=== PATIENT | female | born 1965 | race Caucasian/White ===

== ENCOUNTER 2017-09-02 15:12 | Inpatient (IN) ==
--- NOTE | 2017-09-02 15:27 | Emergency Department Note ---
Disposition Clinical Impression: Urinary tract infection, Ovarian cyst, Diabetes, Abdominal pain, Obesity, History of diverticulitis Disposition: Home, Self-Care Condition: Good Instructions: Diabetes Mellitus Type 2 in Adults (ED), Abdominal Pain (ED), Urinary Tract Infection in Women (ED), Ovarian Cyst (ED) Reasons to Return/Additional Instructions: Return to the emergency department if there is increased abdominal pain, vaginal bleeding or discharge, fever, passing out, flank pain, chest pain, shortness of breath, lower high blood sugar, confusion, any trouble walking talking hearing seeing or speaking, worsening or any other concern. Follow up with your primary care physician or the [facility] [place] [facility] in 2 days. Prescriptions: cephALEXin [Keflex] 500 mg PO TID #15 capsule Referrals: Juan Frausto DO [Primary Care Provider] - [facility] [Outside] Forms: ED Satisfaction Letter General Adult HPI - General Chief complaint: ED Urogenital-Female Stated complaint: uti Time Seen by Provider: 09/02/17 15:18 - History of Present Illness HPI Narrative: 52-year-old female reports emergency department via EMS. The patient reports she has had frequency of urination for the last one week or so. She reports she has been treated for UTI. She went back for recheck at an outpatient center , they were concerned because the patient reported abdominal pain and evidently had not improved with the antibiotics. She is known to be diabetic. She states her sugars have been well-controlled. There is no history of flank pain , the patient reportedly stated she had left-sided abdominal pain and was concerned about diverticulitis. She had a history of diverticulitis in the past. There is been no vomiting or diarrhea. The patient is not anticoagulated. There is no history of chest pain or acute shortness of breath , she has chronic COPD but does not require oxygen. No fevers. No history of convulsions or confusion or any difficulty moving the arms or legs independently. The patient describes dysuria. No history of vaginal discharge or bleeding given. There is no history of bloody urine or fever or flank pain. Per report the outpatient providers were concerned regarding the patient's nonimprovement had the patient sent to the ED. - Related Data Previous Rx's Medication Instructions Recorded Ciprofloxacin HCl [Cipro] 500 mg PO BID #20 tablet 10/25/16 Hydrocodone/Acetaminophen [Gordon 1 - 2 each PO Q6H PRN #8 tablet 10/25/16 5-325 Tablet] Ondansetron ODT [Zofran ODT] 4 mg SL Q6HR PRN #15 tab.rapdis 10/25/16 metroNIDAZOLE [Flagyl] 500 mg PO TID #30 tablet 10/25/16 Hydrocodone/Acetaminophen [Gordon 1 tab PO Q6H PRN #15 tab 10/28/16 5-325 Tablet] cephALEXin [Keflex] 500 mg PO TID #15 capsule 09/02/17 Allergies Allergy/AdvReac Type Severity Reaction Status Date / Time No Known Allergies Allergy Verified 10/28/16 17:58 All systems ED: reviewed and negative except as stated. Past Medical History - Past Medical History Medical history: Reports: COPD, diabetes, GERD, hypertension Surgical history: Reports: orthopedic, other Psychiatric history: Reports: bipolar - Social History Smoking Status: Current every day smoker Alcohol use: Reports: none Drug use: Reports: none Physical Exam - General Limitations: no limitations General appearance: alert, in no apparent distress - Head Head exam: atraumatic, normocephalic, normal inspection - Eye Eye exam: Present: normal appearance, PERRL, EOMI - ENT ENT exam: normal exam, normal oropharynx, mucous membranes moist, TM's normal bilaterally, normal external ear exam - Neck Neck exam: Present: normal inspection, full ROM, trachea midline - Chest Chest inspection: Present: symmetric chest wall rise. Absent: tenderness - Respiratory Respiratory exam: Present: normal lung sounds bilaterally. Absent: respiratory distress, wheezes, accessory muscle use, prolonged expiratory phase - Cardiovascular Cardiovascular exam: Present: regular rate, normal rhythm, normal heart sounds - Abdominal Exam Abdominal exam: Present: soft, Non-Tender, normal bowel sounds. Absent: tenderness, distention, guarding, rebound, rigidity - Extremities Exam Extremities exam: Present: normal inspection, full ROM, normal capillary refill. Absent: tenderness, pedal edema, joint swelling, calf tenderness - Expanded Lower Extremity Exam Neurovascular/Tendon exam: Present: normal capillary refill. Absent: motor deficit, sensory deficit, tendon deficit, extremity cold to touch, pallor - Back Exam Back exam: Present: normal inspection, full ROM. Absent: tenderness, CVA tenderness (R), CVA tenderness (L), vertebral tenderness - Neurological Exam Neurological exam: Present: alert, oriented X3, CN II-XII intact. Absent: motor sensory deficit - Psychiatric Psychiatric exam: Present: normal affect, normal mood - Skin Skin exam: Present: warm, dry, intact, normal color. Absent: rash, cyanosis, diaphoresis, erythema, pallor, mottled Course Vital Signs Temperature 98.4 F 09/02/17 15:28 Pulse Rate 85 09/02/17 15:28 Respiratory Rate 16 09/02/17 15:28 Blood Pressure 125/80 09/02/17 15:28 O2 Sat by Pulse Oximetry 93 09/02/17 15:28 Temperature 98.4 F 09/02/17 15:28 Pulse Rate 85 09/02/17 15:28 Respiratory Rate 16 09/02/17 15:28 Blood Pressure 125/80 09/02/17 15:28 O2 Sat by Pulse Oximetry 93 09/02/17 15:28 Oxygen Delivery Oxygen Delivery Room Air Medical Decision Making - MDM Narrative Medical decision making narrative: The patient appears to be stable, she describes dysuria, the reports of left lower abdominal pain, CT scan reveals bilateral ovarian cyst with no evidence of diverticulitis or pyelonephritis. She is diabetic, her blood sugar was slightly low in the ED at 66, D50 and fluids were given. The patient's urinalysis shows changes suggestive of infection. She reports she was just treated it is now not taking any more antibiotics. Keflex was given in the ED and prescribed. He patient may benefit from an outpatient pelvic ultrasound, she has bilateral ovarian changes as well as an abnormal shaped uterus per the CT scan report. She appears to be stable. She is alert oriented and ambulatory. She felt comfortable being discharged. 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 - Lab Data Lab results reviewed: Yes I reviewed the patient's lab results. Result diagrams: 09/02/17 15:46 09/02/17 15:46 Lab Results 09/02/17 09/02/17 09/02/17 Range/Units 15:46 15:46 15:50 WBC 15.3 H (4.3-11.1) K/mcL RBC 5.56 H (3.82-4.97) M/mcL Hgb 15.1 (11.5-15.4) g/dL Hct 46.7 H (35.3-44.9) % MCV 84.0 (83.0-100.0) fL MCH 27.2 L (28.0-33.3) pg MCHC 32.3 (31.6-35.5) g/dL RDW 18.3 H (11.5-14.5) % Plt Count 372 (140-400) K/mcL MPV 9.4 (9.4-12.4) fL Immature Gran % 0.5 (0-4) % Seg Neutrophils % 66.0 % Lymphocytes % 24.3 % Monocytes % 8.1 % Eosinophils % 0.5 % Basophils % 0.6 % Neutrophils # 10.1 H (1.6-8.9) K/mcL Lymphocytes # 3.7 (0.6-4.6) K/mcL Monocytes # 1.2 (0.0-1.3) K/mcL Eosinophils # 0.1 (0.0-0.6) K/mcL Basophils # 0.1 (0.0-0.2) K/mcL Immature Plt Fraction 3.7 (1.1-6.1) % Sodium 138 (136-145) mEq/L Potassium 3.6 (3.5-4.5) mEq/L Chloride 102 (98-109) mEq/L Carbon Dioxide 26 (19-29) mEq/L BUN 19 (7-20) mg/dL Creatinine 0.59 (0.57-1.11) mg/dL Est GFR ( Amer) > 60 (> 60) Est GFR (Non-Af Amer) > 60 (> 60) BUN/Creatinine Ratio 32 H (6-26) Glucose 66 L (70-99) mg/dL Calculated Osmolality 286 (280-300) Lactic Acid (0.5-2.2) mmol/L Calcium 9.4 (8.6-10.8) mg/dL Total Bilirubin 0.4 (0.2-1.2) mg/dL Direct Bilirubin 0.2 (0.0-0.5) mg/dL Indirect Bilirubin 0.2 (0.0-1.2) mg/dL AST 18 (5-34) Units/L ALT 16 (0-55) Units/L Alkaline Phosphatase 68 (38-126) Units/L C-Reactive Protein 9 H (Less than 5) mg/L Serum Total Protein 7.6 (6.0-8.3) g/dL Albumin 3.8 (3.5-5.0) g/dL Globulin 3.8 H (2.4-3.5) g/dL Albumin/Globulin Ratio 1.0 L (1.1-2.2) Lipase 52 (8-78) Units/L Urine Color Yellow (Yellow) Urine Clarity Cloudy A (Clear) Urine pH 6.0 (5.0-8.0) pH Units Ur Specific [place] 1.025 (1.010-1.025) Urine Protein 30 H (Neg-Trace) mg/dL Urine Glucose (UA) Normal (Normal) mg/dL Urine Ketones Negative (Negative) mg/dL Urine Blood Moderate H (Negative) Urine Nitrite Positive A (Negative) Urine Bilirubin Negative (Negative) Urine Urobilinogen Normal (Normal) mg/dL Ur Leukocyte Esterase Trace H (Negative) Urine Microscopic RBC 3-5 H (0-3) per hpf Urine Microscopic WBC 5-15 H (0-3) per hpf Ur Squamous Epith Cells Many H (None-Few) per lpf Urine Bacteria Many H (None-Few) per hpf Hyaline Casts None Seen (None-Few) per lpf Ur Culture Indicated? YES A (NO) 09/02/17 Range/Units 17:07 WBC (4.3-11.1) K/mcL RBC (3.82-4.97) M/mcL Hgb (11.5-15.4) g/dL Hct (35.3-44.9) % MCV (83.0-100.0) fL MCH (28.0-33.3) pg MCHC (31.6-35.5) g/dL RDW (11.5-14.5) % Plt Count (140-400) K/mcL MPV (9.4-12.4) fL Immature Gran % (0-4) % Seg Neutrophils % % Lymphocytes % % Monocytes % % Eosinophils % % Basophils % % Neutrophils # (1.6-8.9) K/mcL Lymphocytes # (0.6-4.6) K/mcL Monocytes # (0.0-1.3) K/mcL Eosinophils # (0.0-0.6) K/mcL Basophils # (0.0-0.2) K/mcL Immature Plt Fraction (1.1-6.1) % Sodium (136-145) mEq/L Potassium (3.5-4.5) mEq/L Chloride (98-109) mEq/L Carbon Dioxide (19-29) mEq/L BUN (7-20) mg/dL Creatinine (0.57-1.11) mg/dL Est GFR ( Amer) (> 60) Est GFR (Non-Af Amer) (> 60) BUN/Creatinine Ratio (6-26) Glucose (70-99) mg/dL Calculated Osmolality (280-300) Lactic Acid 0.7 (0.5-2.2) mmol/L Calcium (8.6-10.8) mg/dL Total Bilirubin (0.2-1.2) mg/dL Direct Bilirubin (0.0-0.5) mg/dL Indirect Bilirubin (0.0-1.2) mg/dL AST (5-34) Units/L ALT (0-55) Units/L Alkaline Phosphatase (38-126) Units/L C-Reactive Protein (Less than 5) mg/L Serum Total Protein (6.0-8.3) g/dL Albumin (3.5-5.0) g/dL Globulin (2.4-3.5) g/dL Albumin/Globulin Ratio (1.1-2.2) Lipase (8-78) Units/L Urine Color (Yellow) Urine Clarity (Clear) Urine pH (5.0-8.0) pH Units Ur Specific [place] (1.010-1.025) Urine Protein (Neg-Trace) mg/dL Urine Glucose (UA) (Normal) mg/dL Urine Ketones (Negative) mg/dL Urine Blood (Negative) Urine Nitrite (Negative) Urine Bilirubin (Negative) Urine Urobilinogen (Normal) mg/dL Ur Leukocyte Esterase (Negative) Urine Microscopic RBC (0-3) per hpf Urine Microscopic WBC (0-3) per hpf Ur Squamous Epith Cells (None-Few) per lpf Urine Bacteria (None-Few) per hpf Hyaline Casts (None-Few) per lpf Ur Culture Indicated? (NO) - Radiology Data Radiology results reviewed: Yes I reviewed the patient's radiology results.
[2017-09-02 15:58] LABS: Basophils # 0.1 K/mcL (0.0-0.2); Basophils % 0.6 %; Eosinophils # 0.1 K/mcL (0.0-0.6); Eosinophils % 0.5 %; Hematocrit 46.7 % (35.3-44.9); Hemoglobin 15.1 g/dL (11.5-15.4); Immature Granulocytes % 0.5 % (0-4); Immature Platelets 3.7 % (1.1-6.1); Lymphocytes # 3.7 K/mcL (0.6-4.6); Lymphocytes % 24.3 %; Mean Corpuscular HGB Conc 32.3 g/dL (31.6-35.5); Mean Corpuscular Hemoglobin 27.2 pg (28.0-33.3); Mean Platelet Volume 9.4 fL (9.4-12.4); Monocytes # 1.2 K/mcL (0.0-1.3); Monocytes % 8.1 %; Neutrophils # 10.1 K/mcL (1.6-8.9); Platelet Count 372 K/mcL (140-400); Red Blood Count 5.56 M/mcL (3.82-4.97); Red Cell Distribution Width 18.3 % (11.5-14.5)
[2017-09-02 16:04] LABS: Bilirubin,Urine Negative (Negative); Blood,Urine Moderate (Negative); Clarity,Urine Cloudy (Clear); Color,Urine Yellow (Yellow); Glucose,Urine (UA) Normal (Normal); Ketones,Urine Negative (Negative); Leukocyte Esterase,Urine Trace (Negative); Nitrite,Urine Positive (Negative); Protein,Urine 30 mg/dL (Neg-Trace); Specific Gravity,Urine 1.025 (1.010-1.025); Urobilinogen,Urine Normal (Normal)
[2017-09-02 16:06] LABS: Bacteria,Urine Many per hpf (None-Few); Hyaline Casts,Urine None Seen per lpf (None-Few); Squamous Epithelial Cell,Urine Many per lpf (None-Few)
[2017-09-02 16:14] LABS: BUN/Creatinine Ratio 32 (6-26); Blood Urea Nitrogen 19 mg/dL (7-20); Calcium 9.4 mg/dL (8.6-10.8); Carbon Dioxide 26 mEq/L (19-29); Chloride 102 mEq/L (98-109); Glucose 66 mg/dL (70-99); Osmolality,Calculated 286 (280-300); Potassium 3.6 mEq/L (3.5-4.5); Sodium 138 mEq/L (136-145); eGFR For African Americans > 60 (> 60); eGFR For Non-African Americans > 60 (> 60)
[2017-09-02] MEDS ORDERED: 0.9 % Sodium Chloride 1,000 ML IVC ONE (16:52)
[2017-09-02] MEDS ORDERED: *HR* Dextrose 50 % in Water (Syg) 50 ML SYRINGE IVP ONE (16:53)
[2017-09-02 17:16] LABS: Alanine Aminotransferase 16 Units/L (0-55); Albumin 3.8 g/dL (3.5-5.0); Alkaline Phosphatase 68 Units/L (38-126); Aspartate Amino Transferase 18 Units/L (5-34); Bilirubin,Direct 0.2 mg/dL (0.0-0.5); Bilirubin,Indirect 0.2 mg/dL (0.0-1.2); Bilirubin,Total 0.4 mg/dL (0.2-1.2); C-Reactive Protein 9 mg/L (Less than 5); Globulin 3.8 g/dL (2.4-3.5); Lipase 52 Units/L (8-78); Total Protein 7.6 g/dL (6.0-8.3)
[2017-09-02] MEDS ORDERED: cephALEXin 250 MG CAPSULE PO ONE (19:48)
[2017-09-02 20:58] LABS: Amphetamine Screen,Urine Negative ng/mL (Cutoff=1000); Barbiturate Screen,Urine Negative ng/mL (Cutoff=200); Benzodiazepines Screen,Urine Negative ng/mL (Cutoff=200); Cannabinoid Screen,Urine Negative ng/mL (Cutoff = 50); Cocaine Screen,Urine Negative ng/mL (Cutoff= 300); Opiate Screen,Urine Negative ng/mL (Cutoff=300); Phencyclidine Screen,Urine Negative ng/mL (Cutoff=25)
[2017-09-02 21:01] LABS: Acetaminophen < 1.0 mcg/mL (10-30); Ethanol < 10 mg/dL (0-10); Salicylate < 5.0 mg/dL (15-30)
--- NOTE | 2017-09-02 23:21 | Emergency Department Note ---
START Narrative - START START: accepted sign out from Dr. Stanton. She is waiting for evaluation from [facility]. [facility] dispotion based on their decision. STable and in no acute distress
[2017-09-03] MEDS ORDERED: hydrOXYzine pamoate 25 MG CAPSULE PO PRN (04:03)
[2017-09-03] MEDS ORDERED: *HR* LORazepam 2 MG/ML VIAL IM PRN (04:03)
[2017-09-03] MEDS ORDERED: *HR* LORazepam 1 MG TABLET PO PRN (04:03)
[2017-09-03] MEDS ORDERED: Haloperidol Lactate 5 MG/ML VIAL IM PRN (04:03)
[2017-09-03] MEDS ORDERED: MOM Conc 10 ML UD.LIQ PO PRN (04:03)
[2017-09-03] MEDS: cephALEXin 500 MG CAPSULE PO SCH ×2 (08:38→20:24)
[2017-09-03] MEDS: Nicotine 2 MG GUM BC PRN ×3 (10:14→19:53)
--- NOTE | 2017-09-03 12:38 | Psychiatry History & Physical ---
Date of Encounter: 09/03/17 Time of Encounter: 12:15 History of Present Illness Patient Stated Chief Complaint: "My anxiety is out of control Medicare Admission Attestation: For traditional Medicare patients the provided hospital inpatient services are reasonable and necessary and in the case of services not specified as inpatient -only under 42 CFR 419.22 (n), that they are appropriately provided as inpatient services in accordance 42 CFR 412.3. For Critical Access Hospital the patient may reasonably be expected to be discharged or transferred to a hospital within 96 hours after admission to the Critical Access Hospital. Admitted From: Emergency Dept Plans for Post Hospital Care: Home History of Present Illness: Ms. Neves is a 52 year old female who presented to the emergency department with some urinary complaints and she was diagnosed with UTI she did endorse some severe anxiety depression and suicidal ideations for which a psych consultation was initiated. Patient is well known to us from prior hospitalizations she is noted to have history of schizoaffective disorder depressed type. Patient reported that she has not been feeling well for the last 2 weeks. She reported that she is having severe anxiety restlessness racing thoughts along with depressive symptoms of hopeless helpless feelings crying and weeping spells and low energy levels and motivation and anhedonia. Patient reported that she is worrying that the world is coming to an end and Pres[employer]wight [employer]agne will blow up this world. Patient also made comments that she is feeling extremely guilty for hurting a child. We verified with the is no history of patient hurting anybody or any child. Since patient was severely anxious depressed and making some odd and bizarre statements and posing a threat to herself by reporting suicidal ideation with a plan to overdose it was decided to hospitalize her at [facility] for safety concerns Past Med Surg Social Fam HX - Past Medical History Medical history: COPD, diabetes, GERD, hypertension - Past Psychiatric History Psychiatric history: Reports: previous psychiatric hospitalization Past psychiatric history details: Patient has extensive history of mental illness. She has had 5 prior psychiatric hospitalizations. Her last hospitalization was in 2013 at [place]. She is currently receiving outpatient treatment from [facility] clinic. She is noted to have a diagnosis of schizoaffective disorder. Family psychiatric history: Unknown Family History of Suicide: Unknown - Past Surgical History Surgical History: orthopedic, other - Social History Smoking Status: Current every day smoker Smokeless Tobacco Status: No Alcohol use: none Drug use: none Additional substance use detail: Patient is monitoring raised in [place]. She is educated to 12th grade. She denies any physical or sexual abuse. She has been for more than 30 years. She has 2 grown up children. She denies any legal issues. . Occupational status: disabled Current living situation: Home Activity Level: Independent ambulation Recent Out of Country Travel Within the Last 8 Weeks: No Exposure or Possible Exposure to Illness During Travel: No - Family History Mother Hx Family Cardiac Disorders: Yes (heart disease) Medications & Allergies Albuterol Sulfate [Proair Hfa] 2 puff IH Q4H PRN 09/03/17 [History] Aripiprazole [Abilify] 30 mg PO DAILY 09/03/17 [History] Aspirin [Lo-Dose Aspirin EC] 81 mg PO DAILY 09/03/17 [History] Atorvastatin [Lipitor] 40 mg PO DAILY 09/03/17 [History] Beclomethasone Diprop 40mcg [Qvar 40 mcg] 1 puff IH BID 09/03/17 [History] Furosemide [Lasix] 20 mg PO DAILY PRN 09/03/17 [History] Ibuprofen [Motrin] 600 mg PO TID 09/03/17 [History] Insulin Glargine,Hum.rec.anlog [Lantus Solostar] 78 unit SQ DAILY 09/03/17 [ History] Liraglutide [Victoza 2-Dagoberto] 1.2 mg SQ DAILY 09/03/17 [History] Lisinopril 2.5 mg PO DAILY 09/03/17 [History] Loratadine [Claritin] 10 mg PO DAILY 09/03/17 [History] Metformin HCl [Metformin HCl ER] 500 mg PO BID 09/03/17 [History] Metoprolol XL (24 HR) Succ [Toprol XL] 25 mg PO DAILY 09/03/17 [History] Multivitamin [One Daily Essential] 1 tab PO DAILY 09/03/17 [History] [place]-3/Dha/Epa/Fish Oil [Fish Oil 1,000 mg Softgel] 1,000 mg PO DAILY 09/03/17 [History] Omeprazole [PriLOSEC] 40 mg PO DAILY 09/03/17 [History] Sertraline [Zoloft] 50 mg PO DAILY 09/03/17 [History] Trazodone HCl 150 mg PO DAILY 09/03/17 [History] lamoTRIgine [Lamotrigine] 200 mg PO BID 09/03/17 [History] 3 Allergy/AdvReac Type Severity Reaction Status Date / Time No Known Allergies Allergy Verified 10/28/16 17:58 Review of Systems Psychiatric: Reports: depression, anxiety, suicidal ideation, difficulty concentrating, hopelessness Mental Status Exam Patient orientation: Yes Person, Yes Time, Yes Place Level of alertness: Alert Patient appearance: Unkempt, Disheveled Behavior: nervous, anxious, tearful Psychomotor activity: Slowed Eye contact: Maintains Eye Contact Mood description: Depressed, Anxious Affect description: congruent with mood, flat, tearful, dysphoric Speech pattern: Slowed Speech volume: Soft/Quiet Thought process: Intact Thought content: Yes Suicidal ideation, No Homicidal ideation, No Overt delusions, Yes Ideas of reference, Yes Poverty of Content Perceptual disturbances: No Auditory hallucinations, No Visual hallucinations Attention span: Capable of Focused Attention Memory description: Grossly Intact Patient reliability: Reliable Historian Intelligence estimate: Average Judgment: Limited Insight: Minimal Exam - HEENT Head exam IM: Present: atraumatic, normal inspection Eye exam IM: Present: normal appearance ENT exam IM: Present: mucous membranes moist, normal exam - Neurological Neurological exam IM: Present: CN II-XII intact, normal gait, oriented X3, reflexes normal, no focal deficits, strengths equal and symetr throughout. Absent: motor sensory deficit - Respiratory Respiratory exam IM: Absent: respiratory distress - GI/Abdominal GI/Abdominal exam IM: Present: normal bowel sounds, soft. Absent: mass, tenderness - Extremities Extremities exam IM: Present: full ROM, normal inspection - Skin Skin exam IM: Present: normal color Results - Vital Signs Vital signs: Temp Pulse Resp BP Pulse Ox 98.4 F 75 16 119/71 93 09/03/17 09:00 09/03/17 09:00 09/03/17 09:00 09/03/17 09:00 09/03/17 04:30 - Labs Labs: Laboratory Last Values WBC 15.3 K/mcL (4.3-11.1) H 09/02/17 15:46 RBC 5.56 M/mcL (3.82-4.97) H 09/02/17 15:46 Hgb 15.1 g/dL (11.5-15.4) 09/02/17 15:46 Hct 46.7 % (35.3-44.9) H 09/02/17 15:46 MCV 84.0 fL (83.0-100.0) 09/02/17 15:46 MCH 27.2 pg (28.0-33.3) L 09/02/17 15:46 MCHC 32.3 g/dL (31.6-35.5) 09/02/17 15:46 RDW 18.3 % (11.5-14.5) H 09/02/17 15:46 Plt Count 372 K/mcL (140-400) 09/02/17 15:46 MPV 9.4 fL (9.4-12.4) 09/02/17 15:46 Immature Gran % 0.5 % (0-4) 09/02/17 15:46 Seg Neutrophils % 66.0 % 09/02/17 15:46 Lymphocytes % 24.3 % 09/02/17 15:46 Monocytes % 8.1 % 09/02/17 15:46 Eosinophils % 0.5 % 09/02/17 15:46 Basophils % 0.6 % 09/02/17 15:46 Neutrophils # 10.1 K/mcL (1.6-8.9) H 09/02/17 15:46 Lymphocytes # 3.7 K/mcL (0.6-4.6) 09/02/17 15:46 Monocytes # 1.2 K/mcL (0.0-1.3) 09/02/17 15:46 Eosinophils # 0.1 K/mcL (0.0-0.6) 09/02/17 15:46 Basophils # 0.1 K/mcL (0.0-0.2) 09/02/17 15:46 Immature Plt Fraction 3.7 % (1.1-6.1) 09/02/17 15:46 Sodium 138 mEq/L (136-145) 09/02/17 15:46 Potassium 3.6 mEq/L (3.5-4.5) 09/02/17 15:46 Chloride 102 mEq/L (98-109) 09/02/17 15:46 Carbon Dioxide 26 mEq/L (19-29) 09/02/17 15:46 BUN 19 mg/dL (7-20) 09/02/17 15:46 Creatinine 0.59 mg/dL (0.57-1.11) 09/02/17 15:46 Est GFR ( Amer) > 60 (> 60) 09/02/17 15:46 Est GFR (Non-Af Amer) > 60 (> 60) 09/02/17 15:46 BUN/Creatinine Ratio 32 (6-26) H 09/02/17 15:46 Glucose 66 mg/dL (70-99) L 09/02/17 15:46 POC Glucose 87 (58-89) 09/03/17 07:55 Calculated Osmolality 286 (280-300) 09/02/17 15:46 Lactic Acid 0.7 mmol/L (0.5-2.2) 09/02/17 17:07 Calcium 9.4 mg/dL (8.6-10.8) 09/02/17 15:46 Total Bilirubin 0.4 mg/dL (0.2-1.2) 09/02/17 15:46 Direct Bilirubin 0.2 mg/dL (0.0-0.5) 09/02/17 15:46 Indirect Bilirubin 0.2 mg/dL (0.0-1.2) 09/02/17 15:46 AST 18 Units/L (5-34) 09/02/17 15:46 ALT 16 Units/L (0-55) 09/02/17 15:46 Alkaline Phosphatase 68 Units/L (38-126) 09/02/17 15:46 C-Reactive Protein 9 mg/L (Less than 5) H 09/02/17 15:46 Serum Total Protein 7.6 g/dL (6.0-8.3) 09/02/17 15:46 Albumin 3.8 g/dL (3.5-5.0) 09/02/17 15:46 Globulin 3.8 g/dL (2.4-3.5) H 09/02/17 15:46 Albumin/Globulin Ratio 1.0 (1.1-2.2) L 09/02/17 15:46 Lipase 52 Units/L (8-78) 09/02/17 15:46 Urine Color Yellow (Yellow) 09/02/17 15:50 Urine Clarity Cloudy (Clear) A 09/02/17 15:50 Urine pH 6.0 pH Units (5.0-8.0) 09/02/17 15:50 Ur Specific [place] 1.025 (1.010-1.025) 09/02/17 15:50 Urine Protein 30 mg/dL (Neg-Trace) H 09/02/17 15:50 Urine Glucose (UA) Normal mg/dL (Normal) 09/02/17 15:50 Urine Ketones Negative mg/dL (Negative) 09/02/17 15:50 Urine Blood Moderate (Negative) H 09/02/17 15:50 Urine Nitrite Positive (Negative) A 09/02/17 15:50 Urine Bilirubin Negative (Negative) 09/02/17 15:50 Urine Urobilinogen Normal mg/dL (Normal) 09/02/17 15:50 Ur Leukocyte Esterase Trace (Negative) H 09/02/17 15:50 Urine Microscopic RBC 3-5 per hpf (0-3) H 09/02/17 15:50 Urine Microscopic WBC 5-15 per hpf (0-3) H 09/02/17 15:50 Ur Squamous Epith Cells Many per lpf (None-Few) H 09/02/17 15:50 Urine Bacteria Many per hpf (None-Few) H 09/02/17 15:50 Hyaline Casts None Seen per lpf (None-Few) 09/02/17 15:50 Ur Culture Indicated? YES (NO) A 09/02/17 15:50 Salicylates < 5.0 mg/dL (15-30) L 09/02/17 15:46 Urine Opiates Screen Negative ng/mL (Sxlixm=655) 09/02/17 20:41 Acetaminophen < 1.0 mcg/mL (10-30) L 09/02/17 15:46 Ur Barbiturates Screen Negative ng/mL (Yjvmhv=789) 09/02/17 20:41 Ur Phencyclidine Scrn Negative ng/mL (Cutoff=25) 09/02/17 20:41 Ur Amphetamines Screen Negative ng/mL (Agkbwg=5756) 09/02/17 20:41 U Benzodiazepines Scrn Negative ng/mL (Llppyk=582) 09/02/17 20:41 Urine Cocaine Screen Negative ng/mL (Cutoff= 300) 09/02/17 20:41 U Marijuana (THC) Screen Negative ng/mL (Cutoff = 50) 09/02/17 20:41 Ethyl Alcohol < 10 mg/dL (0-10) 09/02/17 15:46 Assessment and Plan (1) Schizoaffective disorder Current visit: Yes Status: Acute Plan: Admit inpatient for safety and stabilization, Close observation, Suicide Precautions per unit protocol, Encourage participation in unit milieu, Group Therapy, Monitor sleep, Monitor appetite Additional Plan: After reviewing the symptom diagnoses and treatment plan explaining the risk- benefit side effects alternative to treatment and consequences of no treatment. In the process of verifying patient's home medications once we verify patient' s home medications or antidepressant /antianxiety and antipsychotic medication doses will be adjusted accordingly and patient will be treated for her depressive symptoms and anxiety symptoms. Risks, benefits, side effects, alternatives discussed w/pt: Yes Patient agreeable to treatment: Yes Plans for Post Hospital Care: Home Estimated Length of Stay (Days): 4 Qualifiers: Schizoaffective disorder type: depressive Qualified Code(s): F25.1 - Schizoaffective disorder, depressive type
[2017-09-03] MEDS ORDERED: Furosemide 20 MG TABLET PO PRN (13:15)
[2017-09-03] MEDS: Multivit/Ca/Min/Fe/FA 1 TAB TABLET PO SCH (13:55)
[2017-09-03] MEDS: Aspirin Enteric Coated 81 MG Tablet PO SCH (13:56)
[2017-09-03] MEDS: Ibuprofen 600 MG TABLET PO SCH ×2 (13:56→20:23)
[2017-09-03] MEDS: Loratadine 10 MG TABLET PO SCH (13:56)
[2017-09-03] MEDS: ARIPiprazole 10 MG TABLET PO SCH (13:56)
[2017-09-03] MEDS: (Omega-3/Dha/Epa/Fish Oil [Fish Oil 1,000 Mg Softgel]) PO SCH (14:00)
[2017-09-03] MEDS: *HR* Metformin 500 MG TABLET PO SCH (20:23)
[2017-09-03] MEDS: lamoTRIgine 100 MG TABLET PO SCH (20:24)
[2017-09-03] MEDS: traZODone 50 MG TABLET PO SCH (20:24)
[2017-09-03] MEDS ORDERED: Insulin DETEMIR 100 UNIT/ML X5UNITS SQ SCH (21:00)
[2017-09-03] MEDS ORDERED: Beclomethasone 40mcg MDI IH SCH (21:00)
[2017-09-03] MEDS: Insulin DETEMIR 100 UNIT/ML X5UNITS SQ SCH (21:19)
[2017-09-04] MEDS: Beclomethasone 40mcg MDI IH SCH ×3 (00:03→20:29)
[2017-09-04] MEDS: Acetaminophen 325 MG TABLET PO PRN ×2 (02:59→18:25)
[2017-09-04] MEDS: lamoTRIgine 100 MG TABLET PO SCH ×2 (08:42→20:27)
[2017-09-04] MEDS: Ibuprofen 600 MG TABLET PO SCH ×3 (08:43→20:27)
[2017-09-04] MEDS: Loratadine 10 MG TABLET PO SCH (08:43)
[2017-09-04] MEDS: ARIPiprazole 10 MG TABLET PO SCH (08:44)
[2017-09-04] MEDS: *HR* Metformin 500 MG TABLET PO SCH ×2 (08:44→20:28)
[2017-09-04] MEDS: cephALEXin 500 MG CAPSULE PO SCH ×2 (08:44→20:29)
[2017-09-04] MEDS: Multivit/Ca/Min/Fe/FA 1 TAB TABLET PO SCH (08:44)
[2017-09-04] MEDS: Aspirin Enteric Coated 81 MG Tablet PO SCH (08:44)
[2017-09-04] MEDS: Metoprolol XL (24 HR) Succ 25 MG TAB.ER.24H PO SCH (08:51)
[2017-09-04] MEDS: LIRAGLUTIDE SQ SCH (08:54)
[2017-09-04] MEDS: (Omega-3/Dha/Epa/Fish Oil [Fish Oil 1,000 Mg Softgel]) PO SCH (08:54)
[2017-09-04] MEDS: Nicotine 2 MG GUM BC PRN ×2 (09:12→13:45)
--- NOTE | 2017-09-04 10:42 | Psychiatry Progress Note ---
Date of Encounter: 09/04/17 Time of Encounter: 10:05 Subjective Interval history: Patient seen and interviewed. His heart and notice improvement in her mood. Suicidal ideations that subsided however is still flat dysphoric and withdrawn. Tolerating medication changes fairly well. Still reporting of depressive symptoms. Encourage to attend groups and start working on a safety plan. Review of Systems Psychiatric: Reports: depression, anxiety, difficulty concentrating, hopelessness Objective: Exam Patient orientation: Yes Person, Yes Time, Yes Place Level of alertness: Alert Patient appearance: Appropriate, Well Groomed Behavior: anxious, withdrawn Psychomotor activity: Slowed Eye contact: Maintains Eye Contact Mood description: Depressed, Anxious Affect description: constricted, dysphoric Speech pattern: Normal rate, Normal rhythm, Normal tone Speech volume: Normal Thought process: Linear, Goal Oriented Thought content: No Suicidal ideation, No Homicidal ideation, No Overt delusions Perceptual disturbances: No Auditory hallucinations, No Visual hallucinations Judgment: Fair Insight: Partial Results - Vital Signs Vital Signs: Temp Pulse Resp BP Pulse Ox 98.4 F 74 16 119/79 93 09/03/17 20:45 09/04/17 04:31 09/03/17 20:45 09/04/17 04:31 09/03/17 04:30 - Labs Labs: Laboratory Results - last 24 hr 09/03/17 09/04/17 20:01 07:28 POC Glucose 150 H 79 Assessment and Plan (1) Schizoaffective disorder Current visit: Yes Status: Acute Plan: Continue hospitalization, Close observation, Suicide Precautions per unit protocol, Encourage participation in unit milieu, Group Therapy, Monitor sleep, Monitor appetite Additional Plan: We will increase Zoloft to 150 mg daily for depression Risks, benefits, side effects, alternatives discussed w/pt: Yes Patient agreeable to treatment: Yes Qualifiers: Schizoaffective disorder type: depressive Qualified Code(s): F25.1 - Schizoaffective disorder, depressive type Consult Discharge Plan - Plan Referrals: Juan Frausto DO [Primary Care Provider] -
[2017-09-04] MEDS: traZODone 50 MG TABLET PO SCH (20:28)
[2017-09-04] MEDS: Insulin DETEMIR 100 UNIT/ML X5UNITS SQ SCH (20:30)
[2017-09-05] MEDS: Acetaminophen 325 MG TABLET PO PRN ×2 (04:27→12:49)
[2017-09-05] MEDS: ARIPiprazole 10 MG TABLET PO SCH (09:03)
[2017-09-05] MEDS: Multivit/Ca/Min/Fe/FA 1 TAB TABLET PO SCH (09:05)
[2017-09-05] MEDS: Metoprolol XL (24 HR) Succ 25 MG TAB.ER.24H PO SCH (09:05)
[2017-09-05] MEDS: Nicotine 2 MG GUM BC PRN ×4 (09:07→20:58)
[2017-09-05] MEDS: *HR* Metformin 500 MG TABLET PO SCH ×2 (09:33→20:37)
[2017-09-05] MEDS: lamoTRIgine 100 MG TABLET PO SCH ×2 (09:34→20:36)
[2017-09-05] MEDS: Loratadine 10 MG TABLET PO SCH (09:36)
[2017-09-05] MEDS: cephALEXin 500 MG CAPSULE PO SCH ×2 (09:38→20:37)
[2017-09-05] MEDS: Ibuprofen 600 MG TABLET PO SCH ×3 (09:38→20:36)
[2017-09-05] MEDS: Aspirin Enteric Coated 81 MG Tablet PO SCH (09:38)
[2017-09-05] MEDS: LIRAGLUTIDE SQ SCH (09:45)
[2017-09-05] MEDS: (Omega-3/Dha/Epa/Fish Oil [Fish Oil 1,000 Mg Softgel]) PO SCH (09:46)
[2017-09-05] MEDS: Beclomethasone 40mcg MDI IH SCH ×2 (09:48→20:35)
--- NOTE | 2017-09-05 12:43 | Psychiatry Progress Note ---
Date of Encounter: 09/05/17 Time of Encounter: 12:30 Subjective Interval history: Patient is seen for follow-up. Staff report that she continued to be withdrawn and slow to respond. She could not remember any of her medication or the name of Dr. She denies problem with sleep, she is guarded with flat affect. Review of Systems Psychiatric: Reports: depression, anxiety, difficulty concentrating, hopelessness Objective: Exam Patient orientation: Yes Person, Yes Time, Yes Place Level of alertness: Alert, Sedated Patient appearance: Appropriate, Well Groomed Behavior: calm, cooperative, guarded, withdrawn Psychomotor activity: Slowed Eye contact: Minimal Contact Mood description: Depressed Affect description: congruent with mood, constricted, blunted, flat Speech pattern: Normal rate, Normal rhythm, Normal tone, Delayed, Limited, Impoverished Speech volume: Normal Thought process: Linear, Goal Oriented Thought content: No Suicidal ideation, No Homicidal ideation, No Overt delusions Perceptual disturbances: No Auditory hallucinations, No Visual hallucinations Judgment: Fair Insight: Partial Results - Vital Signs Vital Signs: Temp Pulse Resp BP Pulse Ox 98.2 F 63 16 126/69 93 09/05/17 09:00 09/05/17 09:00 09/05/17 09:00 09/05/17 09:00 09/03/17 04:30 - Labs Labs: Laboratory Results - last 24 hr 09/04/17 09/05/17 19:50 07:54 POC Glucose 152 H 85 Assessment and Plan (1) Schizoaffective disorder Current visit: Yes Status: Acute Plan: Continue hospitalization, Close observation, Suicide Precautions per unit protocol, Encourage participation in unit milieu, Group Therapy, Monitor sleep, Monitor appetite Additional Plan: Order TSH to evaluate patient psychomotoric retardation. Risks, benefits, side effects, alternatives discussed w/pt: Yes Patient agreeable to treatment: Yes Qualifiers: Schizoaffective disorder type: depressive Qualified Code(s): F25.1 - Schizoaffective disorder, depressive type Consult Discharge Plan - Plan Referrals: Juan Frausto DO [Primary Care Provider] -
[2017-09-05] MEDS: Insulin DETEMIR 100 UNIT/ML X5UNITS SQ SCH (20:34)
[2017-09-05] MEDS: traZODone 50 MG TABLET PO SCH (20:36)
[2017-09-06] MEDS: Acetaminophen 325 MG TABLET PO PRN (04:10)
[2017-09-06] MEDS: ARIPiprazole 10 MG TABLET PO SCH (08:51)
[2017-09-06] MEDS: Aspirin Enteric Coated 81 MG Tablet PO SCH (08:52)
[2017-09-06] MEDS: cephALEXin 500 MG CAPSULE PO SCH ×2 (08:53→19:30)
[2017-09-06] MEDS: Multivit/Ca/Min/Fe/FA 1 TAB TABLET PO SCH (08:53)
[2017-09-06] MEDS: *HR* Metformin 500 MG TABLET PO SCH ×2 (08:54→19:30)
[2017-09-06] MEDS: Loratadine 10 MG TABLET PO SCH (08:54)
[2017-09-06] MEDS: Metoprolol XL (24 HR) Succ 25 MG TAB.ER.24H PO SCH (08:54)
[2017-09-06] MEDS: lamoTRIgine 100 MG TABLET PO SCH ×2 (08:55→19:31)
[2017-09-06] MEDS: Ibuprofen 600 MG TABLET PO SCH ×3 (08:56→19:30)
[2017-09-06] MEDS: (Omega-3/Dha/Epa/Fish Oil [Fish Oil 1,000 Mg Softgel]) PO SCH (09:01)
[2017-09-06] MEDS: LIRAGLUTIDE SQ SCH (09:02)
[2017-09-06] MEDS: Beclomethasone 40mcg MDI IH SCH ×2 (09:42→20:41)
[2017-09-06] MEDS: Nicotine 2 MG GUM BC PRN ×2 (12:36→19:30)
--- NOTE | 2017-09-06 15:35 | Psychiatry Progress Note ---
Date of Encounter: 09/06/17 Time of Encounter: 14:15 Subjective Interval history: Patient is seen for follow-up. She continues to be guarded, withdrawn and depressed. Minimally interacting with staff and peers and self-isolation. She would not elaborate on her feelings and depressive symptoms. I had a long discussion was had regarding activities and doing more and thinking less. She struggled to understand the concepts but eventually she was able to understand it and promises that she will try to do more activities at home. She denied any suicidal thoughts and she is making progress. No medication issues or side effects. Review of Systems Psychiatric: Reports: depression, anxiety, difficulty concentrating, hopelessness Objective: Exam Patient orientation: Yes Person, Yes Time, Yes Place Level of alertness: Alert Patient appearance: Appropriate, Well Groomed Behavior: calm, cooperative, guarded, withdrawn Psychomotor activity: Slowed Eye contact: Minimal Contact Mood description: Euthymic/stable Affect description: congruent with mood, constricted Speech pattern: Normal rate, Normal rhythm, Normal tone, Limited, Impoverished Speech volume: Normal Thought process: Linear, Goal Oriented Thought content: No Suicidal ideation, No Homicidal ideation, No Overt delusions Perceptual disturbances: No Auditory hallucinations, No Visual hallucinations Judgment: Fair Insight: Partial Results - Vital Signs Vital Signs: Temp Pulse Resp BP Pulse Ox 97.8 F 67 16 128/71 93 09/06/17 09:00 09/06/17 09:00 09/06/17 09:00 09/06/17 09:00 09/03/17 04:30 - Labs Labs: Laboratory Results - last 24 hr 09/05/17 09/05/17 09/06/17 13:10 19:41 07:59 POC Glucose 198 H 84 TSH 1.176 Assessment and Plan (1) Schizoaffective disorder Current visit: Yes Status: Acute Plan: Continue hospitalization, Close observation, Suicide Precautions per unit protocol, Encourage participation in unit milieu, Group Therapy, Monitor sleep, Monitor appetite Risks, benefits, side effects, alternatives discussed w/pt: Yes Patient agreeable to treatment: Yes Qualifiers: Schizoaffective disorder type: depressive Qualified Code(s): F25.1 - Schizoaffective disorder, depressive type Consult Discharge Plan - Plan Referrals: Ronan David [facility] [Outside] - 09/13/17 9:00 am (The above appointment is with Brooklynn Castano for mental health counseling services. You will also see Tonia Vasquez on 09/21/2017 at 8:00am for outpatient psychiatric assessment and medication management services. )
[2017-09-06] MEDS: traZODone 50 MG TABLET PO SCH (19:30)
[2017-09-06] MEDS: Insulin DETEMIR 100 UNIT/ML X5UNITS SQ SCH (20:40)
[2017-09-07] MEDS: Nicotine 2 MG GUM BC PRN ×2 (05:24→14:05)
[2017-09-07] MEDS: ARIPiprazole 10 MG TABLET PO SCH (08:01)
[2017-09-07] MEDS: Aspirin Enteric Coated 81 MG Tablet PO SCH (08:02)
[2017-09-07] MEDS: Multivit/Ca/Min/Fe/FA 1 TAB TABLET PO SCH (08:02)
[2017-09-07] MEDS: Metoprolol XL (24 HR) Succ 25 MG TAB.ER.24H PO SCH (08:03)
[2017-09-07] MEDS: lamoTRIgine 100 MG TABLET PO SCH ×2 (08:03→20:21)
[2017-09-07] MEDS: Ibuprofen 600 MG TABLET PO SCH ×3 (08:03→20:20)
[2017-09-07] MEDS: *HR* Metformin 500 MG TABLET PO SCH ×2 (08:04→20:20)
[2017-09-07] MEDS: cephALEXin 500 MG CAPSULE PO SCH ×2 (08:04→20:21)
[2017-09-07] MEDS: Loratadine 10 MG TABLET PO SCH (08:04)
[2017-09-07] MEDS: LIRAGLUTIDE SQ SCH (08:09)
[2017-09-07] MEDS: (Omega-3/Dha/Epa/Fish Oil [Fish Oil 1,000 Mg Softgel]) PO SCH (08:09)
[2017-09-07] MEDS: Beclomethasone 40mcg MDI IH SCH ×2 (10:57→20:25)
[2017-09-07] MEDS: Acetaminophen 325 MG TABLET PO PRN (12:17)
[2017-09-07] MEDS: Mag Hydrox/Al Hydrox/Simeth 30 ML UDC PO PRN (15:30)
[2017-09-07] MEDS: Venlafaxine XR (24 HR) 75 MG CAP.ER.24H PO SCH (15:31)
--- NOTE | 2017-09-07 15:34 | Psychiatry Progress Note ---
Date of Encounter: 09/07/17 Time of Encounter: 15:10 Subjective Interval history: Patient is seen for follow-up. Staff report she continued to be self isolating and minimally interacting with other patients and staff. She is showing slight improvement, affect is more animated but she is guarded and very slow to respond to questions. She endorses suicidal ideation but denies any specific plan she told me that when she was 16 she overdosed. I discussed with her adding Effexor and reduce and was off Zoloft. She is agreeable and she reports having some gastrointestinal problems related to the diverticulitis, she has an appointment in the near future. Review of Systems Psychiatric: Reports: depression, anxiety, difficulty concentrating, hopelessness Objective: Exam Patient orientation: Yes Person, Yes Time, Yes Place Level of alertness: Alert Patient appearance: Appropriate, Well Groomed, Obese Behavior: calm, cooperative, guarded, withdrawn Psychomotor activity: Slowed Eye contact: Minimal Contact Mood description: Euthymic/stable Affect description: congruent with mood, constricted Speech pattern: Normal rate, Normal rhythm, Normal tone, Limited Speech volume: Normal Thought process: Linear, Goal Oriented Thought content: Yes Suicidal ideation, No Homicidal ideation, No Overt delusions Perceptual disturbances: No Auditory hallucinations, No Visual hallucinations Judgment: Fair Insight: Partial Results - Vital Signs Vital Signs: Temp Pulse Resp BP Pulse Ox 97.8 F 75 18 137/79 93 09/07/17 08:46 09/07/17 08:46 09/07/17 08:46 09/07/17 08:46 09/03/17 04:30 - Labs Labs: Laboratory Results - last 24 hr 09/06/17 09/07/17 20:17 07:45 POC Glucose 206 H 131 H Assessment and Plan (1) Schizoaffective disorder Current visit: Yes Status: Acute Plan: Continue hospitalization, Close observation, Suicide Precautions per unit protocol, Encourage participation in unit milieu, Group Therapy, Monitor sleep, Monitor appetite Additional Plan: Order Effexor XR 75 mg daily, change Zoloft dose to 50 mg daily. Risks, benefits, side effects, alternatives discussed w/pt: Yes Patient agreeable to treatment: Yes Qualifiers: Schizoaffective disorder type: depressive Qualified Code(s): F25.1 - Schizoaffective disorder, depressive type Consult Discharge Plan - Plan Referrals: Ronan David [facility] [Outside] - 09/13/17 9:00 am (The above appointment is with Brooklynn Castano for mental health counseling services. You will also see Tonia Vasquez on 09/21/2017 at 8:00am for outpatient psychiatric assessment and medication management services. )
[2017-09-07] MEDS: traZODone 50 MG TABLET PO SCH (20:21)
[2017-09-07] MEDS: Insulin DETEMIR 100 UNIT/ML X5UNITS SQ SCH (20:23)
[2017-09-08] MEDS: Acetaminophen 325 MG TABLET PO PRN ×2 (03:27→12:23)
[2017-09-08] MEDS: Mag Hydrox/Al Hydrox/Simeth 30 ML UDC PO PRN (08:24)
[2017-09-08] MEDS: Multivit/Ca/Min/Fe/FA 1 TAB TABLET PO SCH (08:25)
[2017-09-08] MEDS: lamoTRIgine 100 MG TABLET PO SCH ×2 (08:25→20:54)
[2017-09-08] MEDS: Ibuprofen 600 MG TABLET PO SCH ×3 (08:26→20:54)
[2017-09-08] MEDS: *HR* Metformin 500 MG TABLET PO SCH ×2 (08:26→20:54)
[2017-09-08] MEDS: Metoprolol XL (24 HR) Succ 25 MG TAB.ER.24H PO SCH (08:26)
[2017-09-08] MEDS: cephALEXin 500 MG CAPSULE PO SCH ×2 (08:26→20:54)
[2017-09-08] MEDS: Loratadine 10 MG TABLET PO SCH (08:27)
[2017-09-08] MEDS: ARIPiprazole 10 MG TABLET PO SCH (08:28)
[2017-09-08] MEDS: Aspirin Enteric Coated 81 MG Tablet PO SCH (08:28)
[2017-09-08] MEDS: Venlafaxine XR (24 HR) 75 MG CAP.ER.24H PO SCH (08:29)
[2017-09-08] MEDS: Beclomethasone 40mcg MDI IH SCH ×2 (09:01→23:14)
[2017-09-08] MEDS: Nicotine 2 MG GUM BC PRN ×3 (09:02→21:41)
--- NOTE | 2017-09-08 13:45 | Psychiatry Progress Note ---
Date of Encounter: 09/08/17 Time of Encounter: 13:40 Subjective Interval history: Patient is here for follow-up. Staff reports she is more interactive, smiling more and and more responsive and active. Patient reports feeling better and denied any new side effects from medication changes affect is bright and not long and her response time is improved. She complained of racing thoughts, but she could not elaborate on details. She described some visual distortion related to her poor vision. I suggested to her to try books on tape from the library as an activity and she said she will try. She denies any suicidal thoughts or hallucinations. Review of Systems Psychiatric: Reports: depression, anxiety, difficulty concentrating, hopelessness Objective: Exam Patient orientation: Yes Person, Yes Time, Yes Place Level of alertness: Alert Patient appearance: Appropriate, Well Groomed Behavior: calm, cooperative Psychomotor activity: Normal Eye contact: Maintains Eye Contact Mood description: Euthymic/stable Affect description: congruent with mood, euthymic Speech pattern: Normal rate, Normal rhythm, Normal tone, Slowed, Delayed Speech volume: Soft/Quiet Thought process: Linear, Goal Oriented Thought content: No Suicidal ideation, No Homicidal ideation, No Overt delusions Perceptual disturbances: No Auditory hallucinations, No Visual hallucinations Judgment: Fair Insight: Partial Results - Vital Signs Vital Signs: Temp Pulse Resp BP Pulse Ox 97.9 F 62 16 135/70 93 09/08/17 09:00 09/08/17 09:00 09/08/17 09:00 09/08/17 09:00 09/03/17 04:30 - Labs Labs: Laboratory Results - last 24 hr 09/07/17 09/08/17 19:50 08:13 POC Glucose 255 H 89 Assessment and Plan (1) Schizoaffective disorder Current visit: Yes Status: Acute Plan: Continue hospitalization, Close observation, Suicide Precautions per unit protocol, Encourage participation in unit milieu, Group Therapy, Monitor sleep, Monitor appetite Risks, benefits, side effects, alternatives discussed w/pt: Yes Patient agreeable to treatment: Yes Qualifiers: Schizoaffective disorder type: depressive Qualified Code(s): F25.1 - Schizoaffective disorder, depressive type Consult Discharge Plan - Plan Referrals: Ronan Schulz [facility] [Outside] - 09/13/17 9:00 am (The above appointment is with Brooklynn Castano for mental health counseling services. You will also see Tonia Vasquez on 09/21/2017 at 8:00am for outpatient psychiatric assessment and medication management services. )
[2017-09-08] MEDS: traZODone 50 MG TABLET PO SCH (20:53)
[2017-09-08] MEDS: Insulin DETEMIR 100 UNIT/ML X5UNITS SQ SCH (20:54)
[2017-09-09] MEDS: Ibuprofen 600 MG TABLET PO SCH ×3 (08:26→20:30)
[2017-09-09] MEDS: ARIPiprazole 10 MG TABLET PO SCH (08:27)
[2017-09-09] MEDS: Aspirin Enteric Coated 81 MG Tablet PO SCH (08:27)
[2017-09-09] MEDS: Loratadine 10 MG TABLET PO SCH (08:28)
[2017-09-09] MEDS: Metoprolol XL (24 HR) Succ 25 MG TAB.ER.24H PO SCH (08:28)
[2017-09-09] MEDS: *HR* Metformin 500 MG TABLET PO SCH ×2 (08:28→20:31)
[2017-09-09] MEDS: Multivit/Ca/Min/Fe/FA 1 TAB TABLET PO SCH (08:29)
[2017-09-09] MEDS: cephALEXin 500 MG CAPSULE PO SCH ×2 (08:29→20:31)
[2017-09-09] MEDS: Venlafaxine XR (24 HR) 75 MG CAP.ER.24H PO SCH (08:30)
[2017-09-09] MEDS: lamoTRIgine 100 MG TABLET PO SCH ×2 (08:31→20:31)
[2017-09-09] MEDS: Beclomethasone 40mcg MDI IH SCH ×2 (09:33→20:30)
[2017-09-09] MEDS: Nicotine 2 MG GUM BC PRN (14:37)
--- NOTE | 2017-09-09 16:26 | Psychiatry Progress Note ---
Date of Encounter: 09/09/17 Time of Encounter: 16:21 Subjective Interval history: Patient seen for follow-up. Patient reports feeling much better, less depressed and denies suicidal ideation. She is more interactive with peers and staff. Her energy level improved and she denied any side effects from medication. She is more motivated to add activities like books on tape and doing crafts. Review of Systems Psychiatric: Reports: depression, anxiety, difficulty concentrating, hopelessness Objective: Exam Patient orientation: Yes Person, Yes Time, Yes Place Level of alertness: Alert Patient appearance: Appropriate, Well Groomed Behavior: calm, cooperative Psychomotor activity: Normal Eye contact: Maintains Eye Contact Mood description: Euthymic/stable Affect description: congruent with mood, euthymic Speech pattern: Normal rate, Normal rhythm, Normal tone, Limited Speech volume: Normal, Soft/Quiet Thought process: Linear, Goal Oriented Thought content: No Suicidal ideation, No Homicidal ideation, No Overt delusions Perceptual disturbances: No Auditory hallucinations, No Visual hallucinations Judgment: Fair Insight: Partial Results - Vital Signs Vital Signs: Temp Pulse Resp BP Pulse Ox 97.6 F 59 18 125/79 93 09/09/17 09:00 09/09/17 09:00 09/09/17 09:00 09/09/17 09:00 09/03/17 04:30 - Labs Labs: Laboratory Results - last 24 hr 09/08/17 09/09/17 20:50 08:24 POC Glucose 150 H 89 Assessment and Plan (1) Schizoaffective disorder Current visit: Yes Status: Acute Plan: Continue hospitalization, Close observation, Suicide Precautions per unit protocol, Encourage participation in unit milieu, Group Therapy, Monitor sleep, Monitor appetite Risks, benefits, side effects, alternatives discussed w/pt: Yes Patient agreeable to treatment: Yes Qualifiers: Schizoaffective disorder type: depressive Qualified Code(s): F25.1 - Schizoaffective disorder, depressive type Consult Discharge Plan - Plan Referrals: Ronan Schulz [facility] [Outside] - 09/13/17 9:00 am (The above appointment is with Brooklynn Castano for mental health counseling services. You will also see Tonia Vasquez on 09/21/2017 at 8:00am for outpatient psychiatric assessment and medication management services. )
[2017-09-09] MEDS: traZODone 50 MG TABLET PO SCH (20:31)
[2017-09-09] MEDS: Insulin DETEMIR 100 UNIT/ML X5UNITS SQ SCH (21:06)
[2017-09-10] MEDS: Acetaminophen 325 MG TABLET PO PRN (07:26)
[2017-09-10 08:56] VITALS: BP 109/72
[2017-09-10] MEDS: Beclomethasone 40mcg MDI IH SCH (09:19)
[2017-09-10] MEDS: Multivit/Ca/Min/Fe/FA 1 TAB TABLET PO SCH (09:20)
[2017-09-10] MEDS: *HR* Metformin 500 MG TABLET PO SCH (09:20)
[2017-09-10] MEDS: Venlafaxine XR (24 HR) 75 MG CAP.ER.24H PO SCH (09:20)
[2017-09-10] MEDS: lamoTRIgine 100 MG TABLET PO SCH (09:20)
[2017-09-10] MEDS: Ibuprofen 600 MG TABLET PO SCH (09:21)
[2017-09-10] MEDS: ARIPiprazole 10 MG TABLET PO SCH (09:21)
[2017-09-10] MEDS: Metoprolol XL (24 HR) Succ 25 MG TAB.ER.24H PO SCH (09:21)
[2017-09-10] MEDS: Loratadine 10 MG TABLET PO SCH (09:22)
[2017-09-10] MEDS: Aspirin Enteric Coated 81 MG Tablet PO SCH (09:22)
[2017-09-10] MEDS: Nicotine 2 MG GUM BC PRN ×2 (09:42→13:31)
--- NOTE | 2017-09-10 12:50 | Discharge Summary ---
Date of Encounter: 09/10/17 Time of Encounter: 12:38 Diagnosis - Discharge Diagnosis (1) Schizoaffective disorder Status: Acute Qualifiers: Schizoaffective disorder type: depressive Qualified Code(s): F25.1 - Schizoaffective disorder, depressive type Medications - Discharge Medications Prescriptions: Aripiprazole [Abilify] 30 mg PO DAILY #30 tablet Quetiapine Fumarate [Seroquel] 50 mg PO HS PRN #30 tablet PRN Reason: Insomnia Sertraline [Zoloft] 50 mg PO DAILY #30 tablet Venlafaxine XR (24 HR) [Effexor XR] 75 mg PO DAILY #30 cap.er.24h Albuterol Sulfate [Proair Hfa] 2 puff IH Q4H PRN 09/03/17 [History] Aspirin [Lo-Dose Aspirin EC] 81 mg PO DAILY 09/03/17 [History] Atorvastatin [Lipitor] 40 mg PO DAILY 09/03/17 [History] Beclomethasone Diprop 40mcg [QVAR 40 mcg] 1 puff IH BID 09/03/17 [History] Furosemide [Lasix] 20 mg PO DAILY PRN 09/03/17 [History] Ibuprofen [Motrin] 600 mg PO TID 09/03/17 [History] Insulin Glargine,Hum.rec.anlog [Lantus Solostar] 78 unit SQ DAILY 09/03/17 [ History] Liraglutide [Victoza 2-Dagoberto] 1.2 mg SQ DAILY 09/03/17 [History] Lisinopril 2.5 mg PO DAILY 09/03/17 [History] Loratadine [Claritin] 10 mg PO DAILY 09/03/17 [History] Metformin HCl [Metformin HCl ER] 500 mg PO BID 09/03/17 [History] Metoprolol XL (24 HR) Succ [Toprol Xl] 25 mg PO DAILY 09/03/17 [History] Multivitamin [One Daily Essential] 1 tab PO DAILY 09/03/17 [History] Roulette-3/Dha/Epa/Fish Oil [Fish Oil 1,000 mg Softgel] 1,000 mg PO DAILY 09/03/17 [History] Omeprazole [PriLOSEC] 40 mg PO DAILY 09/03/17 [History] Trazodone HCl 150 mg PO DAILY 09/03/17 [History] lamoTRIgine [Lamotrigine] 200 mg PO BID 09/03/17 [History] Aripiprazole [Abilify] 30 mg PO DAILY #30 tablet 09/10/17 [Rx] Insulin DETEMIR [Levemir] 50 unit SQ HS [id number] 09/10/17 [Rx] Quetiapine Fumarate [Seroquel] 50 mg PO HS PRN #30 tablet 09/10/17 [Rx] Sertraline [Zoloft] 50 mg PO DAILY #30 tablet 09/10/17 [Rx] Venlafaxine XR (24 HR) [Effexor XR] 75 mg PO DAILY #30 cap.er.24h 09/10/17 [Rx] hydrOXYzine pamoate [HydrOXYzine Pamoate] 25 mg PO TID PRN capsule 09/10/17 [Rx ] 3 Allergy/AdvReac Type Severity Reaction Status Date / Time No Known Allergies Allergy Verified 10/28/16 17:58 Results Procedures and tests throughout hospitalization: Completed Lab Orders Category Date Time Status TSH [Thyroid Stimulating Hormone] Routine Lab 09/05/17 13:10 Completed Provider Date of admission: 09/03/17 01:30 Primary care physician: PCP NONE Discharging clinician: Jairo Bowles Assessment and Plan - Patient/Caregiver Discharge Instructions Activity: resume usual activities as tolerated Diet: regular diet - Follow up Plan Follow up with: Ronan Schulz [facility] [Outside] - 09/13/17 9:00 am (The above appointment is with Brooklynn Castano for mental health counseling services. You will also see Tonia Vasquez on 09/21/2017 at 8:00am for outpatient psychiatric assessment and medication management services. ) Functional capacity at discharge: independent ambulation Overall status at discharge: Stable Disposition: Home, Self-Care Hospital Course Hospital course: Ms. Neves is a 52 year old female admitted for exacerbation of schizoaffective disorder with depression and suicidal ideation and auditory and visual hallucinations. For details of admission please see H&P On the unit patient was withdrawn, self isolating, affect was flat, she was not interacting with staff or peers. She reported depressed mood and racing thoughts and visual hallucinations. She displays significant degree of psychomotor retardation. TSH was checked and was normal. Patient medication were adjusted with added Effexor XR 75 mg and reduced her dose of Zoloft to 50 mg daily. Patient responded to this medication change, she became more alert, she attended and participated in groups, she was interacting appropriately with his peers and staff and she was smiling often. Affect became more animated. Prior to discharge patient denied suicidal ideation or auditory hallucinations she was anxious to go home and motivated to add some activities. Her discharge plans were completed by social work. Patient was discharged in stable condition. - Time Spent with Patient Total time spent providing and/or coordinating discharge services: Greater than 30 minutes Quality - Multiple Antipsychotics Patient discharged on 2 or more antipsychotic medications: No Procedures - Procedures Procedures: Medication Management, Crisis Stabilization, Supportive Therapy, Group Therapy, Psychoeducational Therapy Mental Status Exam - Mental Status Exam Patient orientation: Yes Person, Yes Time, Yes Place Level of alertness: Alert Patient appearance: Appropriate, Well Groomed, Obese Behavior: calm, cooperative Psychomotor activity: Slowed Eye contact: Maintains Eye Contact Mood description: Euthymic/stable Affect description: congruent with mood, constricted Speech pattern: Normal rate, Normal rhythm, Normal tone, Limited Speech Volume: Normal Thought process: Linear, Goal Oriented Thought Content: No Suicidal ideation, No Homicidal ideation, No Overt delusions Perceptual Disturbances: No Auditory hallucinations, No Visual hallucinations Judgment: Limited Insight: Partial
== END 2017-09-10 13:52 | disposition home or self-care (01) | DRG 750 ==
LOC: EMEROO 15:12 → 1ANU 09-03 01:30 → SUATTDRO 09-03 01:30 → 1ANU 09-03 04:25
PROVIDERS: ADMIT Psychiatry & Neurology Psychiatry; ATTEND Psychiatry & Neurology Psychiatry

== ENCOUNTER 2019-10-03 12:13 | Observation (INO) ==
[2019-10-03] MEDS ORDERED: methylPREDNISolone 125 MG/2 ML VIAL IVP ONE (15:01)
[2019-10-03] MEDS ORDERED: Ipratropium/Albuterol Neb 3 ML IH ONE (15:01)
[2019-10-03 16:11] LABS: Basophils # 0.1 K/mcL (0.0-0.2); Basophils % 0.6 %; Eosinophils # 0.1 K/mcL (0.0-0.6); Hematocrit 44.4 % (35.3-44.9); Hemoglobin 14.7 g/dL (11.5-15.4); Immature Granulocytes % 0.9 % (0-4); Lymphocytes # 2.5 K/mcL (0.6-4.6); Lymphocytes % 19.9 %; Mean Corpuscular HGB Conc 33.1 g/dL (31.6-35.5); Mean Corpuscular Hemoglobin 28.5 pg (28.0-33.3); Mean Corpuscular Volume 86.2 fL (83.0-100.0); Mean Platelet Volume 9.4 fL (9.4-12.4); Monocytes # 1.1 K/mcL (0.0-1.3); Monocytes % 8.8 %; Neutrophils # 8.7 K/mcL (1.6-8.9); Platelet Count 299 K/mcL (140-400); Red Blood Count 5.15 M/mcL (3.82-4.97); Red Cell Distribution Width 16.3 % (11.5-14.5); Segmented Neutrophils % 68.8 %; White Blood Count 12.6 K/mcL (4.3-11.1)
[2019-10-03 16:28] LABS: BUN/Creatinine Ratio 30 (6-26); Blood Urea Nitrogen 13 mg/dL (6-20); Calcium 9.4 mg/dL (8.6-10.3); Carbon Dioxide 30 mEq/L (23-29); Chloride 99 mEq/L (98-107); Glucose 92 mg/dL (70-105); Osmolality,Calculated 286 (280-300); Potassium 3.7 mEq/L (3.5-5.1); Sodium 138 mEq/L (136-145); eGFR For African Americans > 60 (> 60); eGFR For Non-African Americans > 60 (> 60)
[2019-10-03] MEDS ORDERED: Azithromycin 500 MG in 0.9 % Sodium Chloride 250 ML IVPB ONE (17:25)
[2019-10-03] MEDS ORDERED: Naloxone 0.4 MG/ML INJ IVP PRN (18:21)
[2019-10-03] MEDS ORDERED: Ondansetron 4 MG/2 ML VIAL IVP PRN (18:21)
[2019-10-03] MEDS ORDERED: Dextrose Gel 15 GM/37.5 ML TUBE PO PRN ×2 (18:23)
[2019-10-03] MEDS ORDERED: D5% in Water 1,000 ML IVC PRN (18:23)
[2019-10-03] MEDS ORDERED: *HR* Dextrose 50 % in Water (Syg) 50 ML SYRINGE IVP PRN (18:23)
[2019-10-03] MEDS: Insulin LISPRO 300 UNITS/3 ML VIAL SQ SCH (21:16)
[2019-10-03] MEDS: *HR* Heparin 5,000 UNIT/ML VIAL SQ SCH (21:21)
[2019-10-03] MEDS: Insulin DETEMIR 100 UNIT/ML X5UNITS SQ SCH (21:21)
[2019-10-03] MEDS: Ipratropium Neb 0.5 MG NEBULIZER IH SCH (21:33)
[2019-10-03] MEDS: Levalbuterol Neb 1.25 MG/3 ML IH SCH (21:34)
[2019-10-03] MEDS: Nicotine 21 MG PATCH.TD24 TD SCH (23:02)
[2019-10-03] MEDS: traZODone 50 MG TABLET PO SCH (23:39)
[2019-10-04] MEDS: Levalbuterol Neb 1.25 MG/3 ML IH SCH ×4 (03:53→22:18)
[2019-10-04] MEDS: Ipratropium Neb 0.5 MG NEBULIZER IH SCH ×4 (03:53→22:18)
[2019-10-04] MEDS: *HR* Heparin 5,000 UNIT/ML VIAL SQ SCH ×3 (05:44→21:32)
[2019-10-04] MEDS: GuaiFENesin/Dextromethorphan TABLET PO SCH ×2 (08:45→21:33)
[2019-10-04] MEDS: predniSONE 20 MG TABLET PO SCH (08:45)
[2019-10-04] MEDS: Insulin LISPRO 300 UNITS/3 ML VIAL SQ SCH ×4 (08:45→21:44)
[2019-10-04] MEDS: Nicotine 21 MG PATCH.TD24 TD SCH (21:32)
[2019-10-04] MEDS: traZODone 50 MG TABLET PO SCH (21:33)
[2019-10-04] MEDS: Insulin DETEMIR 100 UNIT/ML X5UNITS SQ SCH (21:36)
[2019-10-04] MEDS ORDERED: Acetaminophen 325 MG TABLET PO ONE (21:45)
[2019-10-04 23:34] LABS: Adenovirus Not Detected (Not Detect); Bordetella Pertussis Not Detected (Not Detect); Chlamydophila pneumoniae Not Detected (Not Detect); Coronavirus 229E Not Detected (Not Detect); Coronavirus HKU1 Not Detected (Not Detect); Coronavirus NL63 Not Detected (Not Detect); Coronavirus OC43 Not Detected (Not Detect); Human Metapneumovirus Not Detected (Not Detect); Human Rhinovirus/Enterovirus Not Detected (Not Detect); Influenza A Subtype 2009 H1 Not Detected (Not Detect); Influenza A Untypeable Not Detected (Not Detect); Influenza B Not Detected (Not Detect); Mycoplasma pneumoniae Not Detected (Not Detect); Parainfluenza Virus 1 Not Detected (Not Detect); Parainfluenza Virus 2 Not Detected (Not Detect); Parainfluenza Virus 3 Not Detected (Not Detect); Parainfluenza Virus 4 Not Detected (Not Detect); Respiratory Syncytial Virus Not Detected (Not Detect)
[2019-10-05 02:48] LABS: Eosinophils % 0.5 %; Hematocrit 40.8 % (35.3-44.9); Hemoglobin 13.5 g/dL (11.5-15.4); Immature Granulocytes % 1.1 % (0-4); Lymphocytes % 27.9 %; Mean Corpuscular HGB Conc 33.1 g/dL (31.6-35.5); Mean Corpuscular Hemoglobin 28.8 pg (28.0-33.3); Mean Corpuscular Volume 87.2 fL (83.0-100.0); Mean Platelet Volume 9.6 fL (9.4-12.4); Monocytes % 5.9 %; Platelet Count 264 K/mcL (140-400); Red Blood Count 4.68 M/mcL (3.82-4.97); Red Cell Distribution Width 16.5 % (11.5-14.5); White Blood Count 13.3 K/mcL (4.3-11.1)
[2019-10-05 02:49] LABS: Basophils # 0.1 K/mcL (0.0-0.2); Basophils % 0.6 %; Eosinophils # 0.1 K/mcL (0.0-0.6); Lymphocytes # 3.7 K/mcL (0.6-4.6); Monocytes # 0.8 K/mcL (0.0-1.3); Neutrophils # 8.5 K/mcL (1.6-8.9)
[2019-10-05] MEDS: Levalbuterol Neb 1.25 MG/3 ML IH SCH ×3 (03:58→15:25)
[2019-10-05] MEDS: Ipratropium Neb 0.5 MG NEBULIZER IH SCH ×3 (03:58→15:25)
[2019-10-05] MEDS: *HR* Heparin 5,000 UNIT/ML VIAL SQ SCH ×2 (05:20→14:01)
[2019-10-05 07:24] VITALS: BP 137/83
[2019-10-05] MEDS ORDERED: Furosemide 20 MG TABLET PO PRN (07:52)
[2019-10-05] MEDS ORDERED: hydrOXYzine pamoate 25 MG CAPSULE PO PRN (07:52)
[2019-10-05] MEDS ORDERED: Metoprolol XL (24 HR) Succ 25 MG TAB.ER.24H PO SCH (09:00)
[2019-10-05] MEDS ORDERED: Nicotine 14 MG PATCH.TD24 TD SCH (09:00)
[2019-10-05] MEDS ORDERED: Venlafaxine XR (24 HR) 150 MG CAP.ER.24H PO SCH (09:00)
[2019-10-05] MEDS ORDERED: Loratadine 10 MG TABLET PO SCH (09:00)
[2019-10-05] MEDS ORDERED: Venlafaxine XR (24 HR) 37.5 MG CAP.ER.24H PO SCH (09:00)
[2019-10-05] MEDS: Aspirin Enteric Coated 81 MG Tablet PO SCH ×2 (09:35→11:02)
[2019-10-05] MEDS: predniSONE 20 MG TABLET PO SCH (09:35)
[2019-10-05] MEDS: GuaiFENesin/Dextromethorphan TABLET PO SCH (09:36)
[2019-10-05] MEDS: Insulin LISPRO 300 UNITS/3 ML VIAL SQ SCH ×2 (11:00→12:33)
[2019-10-05] MEDS ORDERED: lamoTRIgine 100 MG TABLET PO SCH (21:00)
[2019-10-05] MEDS ORDERED: ARIPiprazole 10 MG TABLET PO SCH (21:00)
== END 2019-10-05 17:38 | disposition home or self-care (01) ==
LOC: 2NENU 12:13 → EMEROOARM 12:13 → SUATTDRO 17:36 → 2NENU 18:56
PROVIDERS: ADMIT Family Medicine; ATTEND Student in an Organized Health Care Education/Training Program

== ENCOUNTER 2021-01-17 16:18 | Inpatient (IN) ==
[2021-01-17 17:00] LABS: Hematocrit 45.3 % (35.3-44.9); Mean Corpuscular HGB Conc 33.1 g/dL (31.6-35.5); Mean Corpuscular Hemoglobin 29.6 pg (28.0-33.3); Mean Corpuscular Volume 89.3 fL (83.0-100.0); Mean Platelet Volume 9.2 fL (9.4-12.4); Platelet Count 299 K/mcL (140-400); Red Blood Count 5.07 M/mcL (3.82-4.97); Red Cell Distribution Width 14.9 % (11.5-14.5); White Blood Count 9.9 K/mcL (4.3-11.1)
[2021-01-17 17:11] LABS: Amphetamine Screen,Urine Negative ng/mL (Cutoff=1000); Bacteria,Urine Many per hpf (None-Few); Barbiturate Screen,Urine Negative ng/mL (Cutoff=200); Benzodiazepines Screen,Urine Negative ng/mL (Cutoff=200); Bilirubin,Urine Negative (Negative); Blood,Urine Moderate (Negative); Cannabinoid Screen,Urine Negative ng/mL (Cutoff = 50); Clarity,Urine Clear (Clear); Cocaine Screen,Urine Negative ng/mL (Cutoff= 300); Color,Urine Yellow (Yellow); Glucose,Urine (UA) Normal (Normal); Ketones,Urine Negative (Negative); Leukocyte Esterase,Urine Trace (Negative); Mucus,Urine Few per lpf (None-Few); Nitrite,Urine Positive (Negative); Opiate Screen,Urine Negative ng/mL (Cutoff=300); Phencyclidine Screen,Urine Negative ng/mL (Cutoff=25); Protein,Urine >=300 mg/dL (Neg-Trace); RBC,Urine 0-3 per hpf (0-3); Specific Gravity,Urine 1.025 (1.010-1.025); Squamous Epithelial Cell,Urine Few per hpf (None-Few); Urobilinogen,Urine Normal (Normal); WBC,Urine 15-30 per hpf (0-3)
[2021-01-17 17:23] LABS: Alanine Aminotransferase 30 Units/L (7-52); Albumin 4.3 g/dL (3.5-5.7); Albumin/Globulin Ratio 1.4 (1.1-2.2); Alkaline Phosphatase 78 Units/L (34-104); Aspartate Amino Transferase 24 Units/L (13-39); BUN/Creatinine Ratio 29 (6-26); Bilirubin,Total 0.3 mg/dL (0.3-1.0); Blood Urea Nitrogen 15 mg/dL (6-20); Calcium 9.5 mg/dL (8.6-10.3); Carbon Dioxide 24 mEq/L (23-29); Chloride 102 mEq/L (98-107); Ethanol < 10 mg/dL (Less than 10); Globulin 3.1 g/dL (2.4-3.5); Glucose 120 mg/dL (70-105); Lipase 41 Units/L (11-82); Osmolality,Calculated 284 (280-300); Potassium 3.8 mEq/L (3.5-5.1); Sodium 136 mEq/L (136-145); Total Protein 7.4 g/dL (6.4-8.9); eGFR For African Americans > 60 (> 60); eGFR For Non-African Americans > 60 (> 60)
[2021-01-17] MEDS ORDERED: MOM Conc 10 ML UD.LIQ PO PRN (19:58)
[2021-01-17] MEDS ORDERED: haloperidoL 5 MG TABLET PO PRN (19:58)
[2021-01-17] MEDS ORDERED: *HR* LORazepam 2 MG/ML VIAL IM PRN (19:58)
[2021-01-17] MEDS ORDERED: hydrOXYzine pamoate 25 MG CAPSULE PO PRN (19:58)
[2021-01-17] MEDS ORDERED: Mag Hydrox/Al Hydrox/Simeth 30 ML UDC PO PRN (19:58)
[2021-01-17] MEDS ORDERED: Haloperidol Lactate 5 MG/ML VIAL IM PRN (19:58)
[2021-01-17] MEDS ORDERED: *HR* LORazepam 1 MG TABLET PO PRN (19:58)
[2021-01-17] MEDS: lamoTRIgine 100 MG TABLET PO SCH (22:04)
[2021-01-17] MEDS: cephALEXin 500 MG CAPSULE PO SCH (22:04)
[2021-01-17] MEDS: ARIPiprazole 10 MG TABLET PO SCH (22:04)
[2021-01-17] MEDS: traZODone 50 MG TABLET PO SCH (22:04)
[2021-01-17] MEDS: Nicotine 2 MG GUM BC PRN (22:22)
[2021-01-18] MEDS: hydrOXYzine pamoate 25 MG CAPSULE PO PRN (00:32)
[2021-01-18] MEDS: Acetaminophen 325 MG TABLET PO PRN ×3 (02:54→18:05)
[2021-01-18] MEDS ORDERED: NORETHINDRONE 0.35 MG PO SCH (09:00)
[2021-01-18] MEDS: *HR* Metformin 500 MG TABLET PO SCH ×2 (09:03→17:08)
[2021-01-18] MEDS: Aspirin Enteric Coated 81 MG Tablet PO SCH (09:04)
[2021-01-18] MEDS: Loratadine 10 MG TABLET PO SCH (09:05)
[2021-01-18] MEDS: cephALEXin 500 MG CAPSULE PO SCH ×2 (09:05→20:27)
[2021-01-18] MEDS: lisinopriL 5 MG TABLET PO SCH (09:06)
[2021-01-18] MEDS: Venlafaxine XR (24 HR) 75 MG CAP.ER.24H PO SCH (09:07)
[2021-01-18] MEDS: Metoprolol XL (24 HR) Succ 25 MG TAB.ER.24H PO SCH (09:07)
[2021-01-18] MEDS: *HR* Insulin Regular U-500 500 UNIT/ML SUBQ SCH ×3 (09:08→17:17)
[2021-01-18] MEDS: Nicotine 2 MG GUM BC PRN ×3 (09:42→17:42)
[2021-01-18] MEDS ORDERED: *HR* Dextrose 50 % in Water (Vial) 50 ML VIAL IVP PRN (17:40)
[2021-01-18] MEDS ORDERED: Dextrose Gel 15 GM/37.5 ML TUBE PO PRN ×2 (17:40)
[2021-01-18] MEDS ORDERED: D5% in Water 1,000 ML IVC PRN (17:40)
[2021-01-18] MEDS: ARIPiprazole 10 MG TABLET PO SCH (20:27)
[2021-01-18] MEDS: traZODone 50 MG TABLET PO SCH (20:28)
[2021-01-18] MEDS: lamoTRIgine 100 MG TABLET PO SCH (20:28)
[2021-01-18] MEDS: Insulin LISPRO 300 UNITS/3 ML VIAL SUBQ SCH (20:36)
[2021-01-19] MEDS: traZODone 50 MG TABLET PO PRN (00:05)
[2021-01-19] MEDS: hydrOXYzine pamoate 25 MG CAPSULE PO PRN (00:05)
[2021-01-19] MEDS: Acetaminophen 325 MG TABLET PO PRN ×2 (02:36→10:25)
[2021-01-19 07:08] LABS: Estimated Average Glucose 169 mg/dl; Hemoglobin A1C 7.5 %
[2021-01-19] MEDS ORDERED: Insulin LISPRO 300 UNITS/3 ML VIAL SUBQ SCH (08:00)
[2021-01-19] MEDS: Insulin LISPRO 300 UNITS/3 ML VIAL SUBQ SCH ×7 (08:48→21:07)
[2021-01-19] MEDS: *HR* Metformin 500 MG TABLET PO SCH ×2 (08:55→16:56)
[2021-01-19] MEDS: Venlafaxine XR (24 HR) 75 MG CAP.ER.24H PO SCH (08:58)
[2021-01-19] MEDS: Loratadine 10 MG TABLET PO SCH (08:59)
[2021-01-19] MEDS: Aspirin Enteric Coated 81 MG Tablet PO SCH (08:59)
[2021-01-19] MEDS: Metoprolol XL (24 HR) Succ 25 MG TAB.ER.24H PO SCH (08:59)
[2021-01-19] MEDS: cephALEXin 500 MG CAPSULE PO SCH ×2 (08:59→20:45)
[2021-01-19] MEDS: lisinopriL 5 MG TABLET PO SCH (09:03)
[2021-01-19] MEDS: Nicotine 2 MG GUM BC PRN ×3 (09:04→19:14)
[2021-01-19] MEDS: *HR* Insulin Regular U-500 500 UNIT/ML SUBQ SCH (09:09)
[2021-01-19] MEDS: traZODone 50 MG TABLET PO SCH (20:45)
[2021-01-19] MEDS: ARIPiprazole 10 MG TABLET PO SCH (20:46)
[2021-01-19] MEDS: lamoTRIgine 100 MG TABLET PO SCH (20:46)
[2021-01-20] MEDS: Acetaminophen 325 MG TABLET PO PRN ×3 (04:53→18:13)
[2021-01-20] MEDS: Nicotine 2 MG GUM BC PRN ×3 (07:19→18:36)
[2021-01-20] MEDS: *HR* Metformin 500 MG TABLET PO SCH ×2 (09:01→18:12)
[2021-01-20] MEDS: Venlafaxine XR (24 HR) 75 MG CAP.ER.24H PO SCH (09:01)
[2021-01-20] MEDS: cephALEXin 500 MG CAPSULE PO SCH ×2 (09:02→20:08)
[2021-01-20] MEDS: Aspirin Enteric Coated 81 MG Tablet PO SCH (09:03)
[2021-01-20] MEDS: Metoprolol XL (24 HR) Succ 25 MG TAB.ER.24H PO SCH (09:03)
[2021-01-20] MEDS: Loratadine 10 MG TABLET PO SCH (09:03)
[2021-01-20] MEDS: lisinopriL 5 MG TABLET PO SCH (09:05)
[2021-01-20] MEDS: Insulin LISPRO 300 UNITS/3 ML VIAL SUBQ SCH ×7 (09:14→20:14)
[2021-01-20] MEDS: lamoTRIgine 25 MG TABLET PO SCH (14:11)
[2021-01-20] MEDS: traZODone 50 MG TABLET PO SCH (20:08)
[2021-01-20] MEDS: hydrOXYzine pamoate 25 MG CAPSULE PO PRN (20:08)
[2021-01-20] MEDS: ARIPiprazole 10 MG TABLET PO SCH (20:09)
[2021-01-20] MEDS: lamoTRIgine 100 MG TABLET PO SCH (20:09)
[2021-01-21] MEDS: traZODone 50 MG TABLET PO PRN (01:18)
[2021-01-21] MEDS: hydrOXYzine pamoate 25 MG CAPSULE PO PRN (01:18)
[2021-01-21] MEDS: Acetaminophen 325 MG TABLET PO PRN (01:18)
[2021-01-21] MEDS: cephALEXin 500 MG CAPSULE PO SCH (08:49)
[2021-01-21] MEDS: lisinopriL 5 MG TABLET PO SCH (08:49)
[2021-01-21] MEDS: Loratadine 10 MG TABLET PO SCH (08:49)
[2021-01-21] MEDS: Aspirin Enteric Coated 81 MG Tablet PO SCH (08:50)
[2021-01-21] MEDS: *HR* Metformin 500 MG TABLET PO SCH ×2 (08:51→17:08)
[2021-01-21] MEDS: Metoprolol XL (24 HR) Succ 25 MG TAB.ER.24H PO SCH (08:51)
[2021-01-21] MEDS: Venlafaxine XR (24 HR) 75 MG CAP.ER.24H PO SCH (08:52)
[2021-01-21] MEDS: lamoTRIgine 25 MG TABLET PO SCH (08:52)
[2021-01-21] MEDS: Insulin LISPRO 300 UNITS/3 ML VIAL SUBQ SCH ×6 (08:54→17:10)
[2021-01-21] MEDS: *HR* Insulin Regular U-500 500 UNIT/ML SUBQ SCH (14:35)
[2021-01-21] MEDS: Nicotine 2 MG GUM BC PRN ×2 (17:31→20:40)
[2021-01-21] MEDS: traZODone 50 MG TABLET PO SCH (20:21)
[2021-01-21] MEDS: ARIPiprazole 10 MG TABLET PO SCH (20:21)
[2021-01-21] MEDS: lamoTRIgine 100 MG TABLET PO SCH (20:21)
[2021-01-21] MEDS: Insulin DETEMIR 100 UNIT/ML X5UNITS SUBQ SCH (20:28)
[2021-01-21] MEDS ORDERED: Mirtazapine 15 MG TABLET PO SCH (21:00)
[2021-01-22] MEDS: Acetaminophen 325 MG TABLET PO PRN (03:04)
[2021-01-22] MEDS: *HR* Metformin 500 MG TABLET PO SCH (08:43)
[2021-01-22] MEDS: Loratadine 10 MG TABLET PO SCH (08:45)
[2021-01-22] MEDS: lisinopriL 5 MG TABLET PO SCH (08:45)
[2021-01-22] MEDS: Metoprolol XL (24 HR) Succ 25 MG TAB.ER.24H PO SCH (08:45)
[2021-01-22] MEDS: lamoTRIgine 25 MG TABLET PO SCH (08:46)
[2021-01-22] MEDS: Aspirin Enteric Coated 81 MG Tablet PO SCH (08:47)
[2021-01-22] MEDS: Venlafaxine XR (24 HR) 75 MG CAP.ER.24H PO SCH (08:47)
[2021-01-22] MEDS: Insulin LISPRO 300 UNITS/3 ML VIAL SUBQ SCH ×2 (09:11→09:12)
[2021-01-22] MEDS: Insulin DETEMIR 100 UNIT/ML X5UNITS SUBQ SCH (09:12)
[2021-01-22 09:28] VITALS: BP 139/83
[2021-01-22] MEDS ORDERED: Ibuprofen 400 MG TABLET PO PRN (09:57)
[2021-01-23] MEDS ORDERED: SEMAGLUTIDE SQ SCH (09:00)
== END 2021-01-22 11:10 | disposition home or self-care (01) | DRG 750 ==
LOC: EMEROOARM 16:18 → 1ANU 19:11
PROVIDERS: ADMIT Psychiatry & Neurology Psychiatry; ATTEND Psychiatry & Neurology Psychiatry